=== PATIENT | female | born 1980 | race Hispanic/Latino ===

== ENCOUNTER 2020-05-18 07:00 | Observation (INO) | payer OTHER ==
[2020-01-11 11:54] LABS: BASOPHILS % (AUTO) 0.2 % (0.0-5.0); EOSINOPHILS % (AUTO) 1.6 % (0.0-8.0); HEMATOCRIT 38.7 % (36-48); LYMPHOCYTES % (AUTO) 20.7 % (21.0-51.0); MEAN CORPUSCULAR HGB CONC 31.8 g/dL (32.0-36.0); MONOCYTES % (AUTO) 9.8 % (3.0-13.0); NEUTROPHILS % (AUTO) 67.2 % (40.0-77.0); PLATELET COUNT (AUTO) 326 K/uL (130-400); RED CELL DISTRIBUTION WIDTH 15.2 % (11.0-15.5); WHITE BLOOD COUNT (AUTO) 5.7 K/uL (4.8-10.8)
[2020-01-11 12:04] LABS: CREATININE 0.5 mg/dL (0.5-1.5); POTASSIUM 4.3 mmol/L (3.5-5.1)
[2020-01-11 12:15] LABS: INR 0.87 (0.85-1.15); PARTIAL THROMBOPLASTIN TIME 27.7 SEC (26.3-35.5); PROTHROMBIN TIME 9.4 SEC (9.6-11.6)
[2020-01-12 08:47] VITALS: BP 123/67
[2020-05-16 11:40] LABS: BASOPHILS % (AUTO) 0.3 % (0.0-5.0); EOSINOPHILS % (AUTO) 1.6 % (0.0-8.0); HEMATOCRIT 39.3 % (36-48); LYMPHOCYTES % (AUTO) 22.3 % (21.0-51.0); MEAN CORPUSCULAR HEMOGLOBIN 28.7 pg (27.0-33.0); MEAN CORPUSCULAR HGB CONC 32.3 g/dL (32.0-36.0); MEAN CORPUSCULAR VOLUME 88.9 fL (79-99); MONOCYTES % (AUTO) 6.5 % (3.0-13.0); NEUTROPHILS % (AUTO) 68.7 % (40.0-77.0); PLATELET COUNT (AUTO) 368 K/uL (130-400); RED BLOOD CELL COUNT(AUTO) 4.42 MIL/uL (4.00-5.50); RED CELL DISTRIBUTION WIDTH 12.9 % (11.0-15.5); WHITE BLOOD COUNT (AUTO) 9.3 K/uL (4.8-10.8)
[2020-05-16 11:47] LABS: INR 0.86 (0.85-1.15); PARTIAL THROMBOPLASTIN TIME 26.9 SEC (26.3-35.5); PROTHROMBIN TIME 9.3 SEC (9.6-11.6)
[2020-05-16 11:58] LABS: CREATININE 0.4 mg/dL (0.5-1.5); POTASSIUM 4.1 mmol/L (3.5-5.1)
[2020-05-17 14:05] VITALS: BP 134/74
[2020-05-18] VITALS (10 sets, daily range): BP systolic 118–149; BP diastolic 75–84
[~2020-05-18] VITALS: Ht 138.4 cm; Wt 70.9 kg
[~2020-05-18 07:00] MED LIST: INSU100V37 SQ; IVAB5TAB PO; LIRA0.6P SQ; LISI-617 PO; LORA10TA7 PO; METF-526 PO; OMEP20CA12 PO; PNV11TAB5 PO; SERT100T12 PO; SODIUM CHLORIDE 0.9% 1000ML 1,000 ML IV SCH
[2020-05-18] MEDS ORDERED: SODIUM CHLORIDE 0.9% 1000ML 1,000 ML IV ONE (08:09)
[2020-05-18] MEDS ORDERED: HEPARIN SODIUM 1000UNIT/ML 10ML VIAL ONE (09:07)
[2020-05-18] MEDS ORDERED: MIDAZOLAM HCL 1 MG/ML 2ML VIAL ONE ×3 (09:07→12:07)
[2020-05-18] MEDS ORDERED: MEPERIDINE-PF 25 MG/ML SYG ONE ×3 (09:07→12:07)
[2020-05-18] MEDS ORDERED: LIDOCAINE HCL 2% 20ML ONE (09:08)
[2020-05-18] MEDS ORDERED: ISOPROTERENOL HCL 0.2 MG/ML AMP/VIAL/BAG ONE (10:33)
[2020-05-18] MEDS ORDERED: ADENOSINE 90MG/30ML VIAL IV ONE (10:36)
[2020-05-18] MEDS ORDERED: VERAPAMIL HCL 2.5 MG/ML VIAL ONE (12:33)
[2020-05-18] MEDS ORDERED: ACETAMINOPHEN-CODEINE 300/30MG TAB PO PRN (13:45)
[2020-05-18] MEDS ORDERED: LISINOPRIL 5 MG TABLET PO SCH (21:00)
[2020-05-18] MEDS ORDERED: PANTOPRAZOLE SODIUM 40 MG TABLET.DR PO SCH (21:00)
[2020-05-18] MEDS ORDERED: METFORMIN HCL 500 MG TAB.SR.24H PO SCH (21:00)
[2020-05-18] MEDS ORDERED: SERTRALINE HCL 50 MG TABLET PO SCH (21:00)
[2020-05-18] MEDS ORDERED: LORATADINE 10 MG TABLET PO SCH (21:00)
[2020-05-18] MEDS ORDERED: LIRAGLUTIDE 1.8 MG SQ SCH (21:00)
[2020-05-19] VITALS: BP 126/83
[2020-05-19 04:00] VITALS: BP 109/72
[2020-05-19 06:10] LABS: BASOPHILS % (AUTO) 0.3 % (0.0-5.0); EOSINOPHILS % (AUTO) 1.3 % (0.0-8.0); HEMATOCRIT 34.7 % (36-48); LYMPHOCYTES % (AUTO) 17.3 % (21.0-51.0); MEAN CORPUSCULAR HEMOGLOBIN 28.6 pg (27.0-33.0); MEAN CORPUSCULAR HGB CONC 32.3 g/dL (32.0-36.0); MEAN CORPUSCULAR VOLUME 88.5 fL (79-99); MONOCYTES % (AUTO) 7.4 % (3.0-13.0); NEUTROPHILS % (AUTO) 72.9 % (40.0-77.0); PLATELET COUNT (AUTO) 256 K/uL (130-400); RED BLOOD CELL COUNT(AUTO) 3.92 MIL/uL (4.00-5.50); WHITE BLOOD COUNT (AUTO) 7.9 K/uL (4.8-10.8)
[2020-05-19 06:21] LABS: CREATININE 0.4 mg/dL (0.5-1.5); POTASSIUM 3.8 mmol/L (3.5-5.1)
[2020-05-19 08:00] VITALS: BP 109/71
[2020-05-19] MEDS ORDERED: INSULIN DEGLUDEC 50 UNIT SQ SCH (11:30)
[2020-05-19 12:00] VITALS: BP 115/69
--- NOTE | 2020-05-19 12:39 | NUR ---
DISCHARGE PATIENT IS ALL SET FOR DISCHARGE. WAITING ON DR LEVY TO PUT IN DISCHARGE ORDERS. PATIENT DID NOT BRING HOME INSULIN TO HOSPITAL AND REFUSES TO SUBSTITUTE SAYING SHE WILL RESUME HERS ONCE SHE GETS DISCHARGED.
[2020-05-19 16:00] VITALS: BP 116/65
--- NOTE | 2020-05-19 17:38 | NUR ---
DISCHARGE PATIENT HAS BEEN DISCHARGED TO HOME. WALKED PATIENT DOWNSTAIRS. PATIENT IS BEEN TAKEN HOME BY MOM. ALL DISCHARGE INSTRUCTIONS PRINTED OUT AND HANDED TO PATIENT.
== END 2020-05-19 17:38 | disposition home or self-care (01) ==
LOC: DAH 07:00 → INTOOBSV 07:01 → OBSVTOIN 07:01 → DAH 07:01 → DAHIP 07:01 → 4CH 14:58
PROVIDERS: ADMIT Internal Medicine; ATTEND Internal Medicine
DX: I47.1 Supraventricular tachycardia (principal); E11.9 Type 2 diabetes mellitus without complications; I10 Essential (primary) hypertension; E78.5 Hyperlipidemia, unspecified; E66.01 Morbid (severe) obesity due to excess calories; K21.9 Gastro-esophageal reflux disease without esophagitis; Z79.4 Long term (current) use of insulin; Z79.899 Other long term (current) drug therapy; Z68.37 Body mass index [BMI] 37.0-37.9, adult
CPT/HCPCS: 36415 ×3; 80048 ×3; 82948 ×5; 84703 ×2; 85025 ×3; 85610 ×2; 85730 ×2; 93005; 93613; 93621; 93623; 93653; 93655; 96360; 96361; A4215; A4216; A4221; A4222; A4223 ×3; A4606; A4649 ×2; A4663; C1730 ×5; C1731; C1732; C1894 ×5; G0378 ×18; J0153; J1644 ×3; J2175 ×3; J2250 ×3; J3490 ×3; J7030; 99156; 99157

== ENCOUNTER 2024-08-25 05:49 | Day surgery (SDC) | payer BC ==
[2024-08-23 10:05] VITALS: BP 125/63; PULSE 97; RESP 18; TEMP 97.2
--- NOTE | 2024-08-23 10:05 | EKG ---
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
[2024-08-23 10:08] LABS: BASOPHILS # (AUTO) 0.02 K/uL (0.00-0.20); BASOPHILS % (AUTO) 0.2 % (0.0-5.0); EOSINOPHILS # (AUTO) 0.07 K/uL (0.00-0.70); EOSINOPHILS % (AUTO) 0.8 % (0.0-8.0); HEMATOCRIT 41.5 % (36-48); IMMATURE GRANULOCYTE ABSOLUTE 0.06 K/uL (0-1); LYMPHOCYTES % (AUTO) 23.7 % (21.0-51.0); MEAN CORPUSCULAR HEMOGLOBIN 30.6 pg (27.0-33.0); MEAN CORPUSCULAR HGB CONC 33.3 g/dL (32.0-36.0); MONOCYTES # (AUTO) 0.7 K/uL (0.1-1.0); MONOCYTES % (AUTO) 7.8 % (3.0-13.0); NEUTROPHILS # (AUTO) 5.8 K/uL (1.8-7.7); NEUTROPHILS % (AUTO) 66.8 % (40.0-77.0); PLATELET COUNT (AUTO) 394 K/uL (130-400); RED BLOOD CELL COUNT(AUTO) 4.51 MIL/uL (4.00-5.50); RED CELL DISTRIBUTION WIDTH 13.2 % (11.0-15.5); WHITE BLOOD COUNT (AUTO) 8.6 K/uL (4.8-10.8)
[2024-08-23 10:23] LABS: CREATININE 0.6 mg/dL (0.5-1.0); POTASSIUM 4.2 mmol/L (3.5-5.1)
[2024-08-23 10:25] LABS: INR <= 0.93 (0.85-1.15); PROTHROMBIN TIME 9.8 SEC (9.6-11.6)
[2024-08-23 10:26] LABS: PARTIAL THROMBOPLASTIN TIME 27.3 SEC (26.3-35.5)
--- NOTE | 2024-08-23 10:26 | NUR ---
RE: SALLY REPORTED TO DR HOLGUIN THAT PATIENT'S LAST DOSE OF OZEMPIC WAS ON 08/21/24, NO NEW ORDERS RECEIVED. OK TO PROCEED, FOLLOW PROTOCOL.
[2024-08-25] VITALS (19 sets, daily range): BP systolic 108–129; BP diastolic 57–79; PULSE 91–116; RESP 16–21; TEMP 97.2–97.8
[~2024-08-25] VITALS: Ht 137.2 cm; Wt 71.6 kg
[~2024-08-25 05:49] MED LIST changes: +ATOR40TA71 PO; +DULO60CA64 PO; +FENO48TA10 PO; +INS7030 SQ; -INSU100V37 SQ; -IVAB5TAB PO; -LIRA0.6P SQ; -LISI-617 PO; +METF-446 PO; -METF-526 PO; +OMEG-11 PO; -PNV11TAB5 PO; +SEMA2PEN SQ; -SERT100T12 PO; -SODIUM CHLORIDE 0.9% 1000ML 1,000 ML IV SCH
[2024-08-25] MEDS: 0.9%NACL 1000ML 1,000 ML IV ONE (06:48)
[2024-08-25] MEDS ORDERED: LIDOCAINE PF 100MG/5ML (2%) SYRINGE 5ML ONE (07:08)
[2024-08-25] MEDS ORDERED: NEOSTIGMINE METHYLSULFATE 1MG/ML IV ONE (07:10)
[2024-08-25] MEDS ORDERED: phenylEPHRINE HCL 10 MG/ML 1ML VIAL IV ONE (07:10)
[2024-08-25] MEDS ORDERED: SUCCINYLCHOLINE CHLORIDE 20 MG/ML 10 ML VIAL ONE (07:10)
[2024-08-25] MEDS ORDERED: proPOFol 10 MG/ML 20ML VIAL IV ONE (07:10)
[2024-08-25] MEDS ORDERED: MIDAZOLAM HCL 1 MG/ML 2ML VIAL ONE (07:11)
[2024-08-25] MEDS ORDERED: rocuRONium bROMide 10MG/1ML 5ML VL ONE ×2 (07:11→07:12)
[2024-08-25] MEDS ORDERED: GLYCOPYRROLATE 0.2 MG/ML 5 ML VIAL ONE (07:11)
[2024-08-25] MEDS ORDERED: FENTanyl CITRate PF 50 MCG/1 ML 5ML AMP IV ONE (07:12)
[2024-08-25] MEDS ORDERED: dexmedeTOMIDine HCL 200 MCG/2 ML VIAL IV ONE (07:14)
[2024-08-25] MEDS ORDERED: HEParin 10,000 UNIT/10ML (1,000 UNIT/ML) VIAL ONE (07:17)
[2024-08-25] MEDS ORDERED: LIDOCAINE HCL 400MG/20ML VIAL ONE (07:17)
[2024-08-25] MEDS ORDERED: HEParin-NS 1,000 UNIT/500 ML 1,000 ML IV ONE (07:18)
[2024-08-25] MEDS ORDERED: HEParin-NS 1,000 UNIT/500 ML 500 ML IV ONE ×2 (07:24→07:47)
[2024-08-25] MEDS ORDERED: ketaMINE 50MG/ML SYRINGE 50 MG/ML DISP.SYRIN ONE (07:33)
[2024-08-25] MEDS ORDERED: ISOPROTERENOL HCL 0.2 MG/ML AMP/VIAL/BAG ONE (08:09)
[2024-08-25] MEDS ORDERED: dexaMETHasone SOD PHOSPHATE 10MG/ML 1ML VIAL ONE (08:57)
[2024-08-25] MEDS ORDERED: ondanSETRON 4MG INJ ONE (08:57)
[2024-08-25] MEDS ORDERED: metoPROLOL tartRATE 1 MG/ML 5ML VIAL IV ONE (09:27)
[2024-08-25] MEDS: morPHINE 2 MG SYG ONE (10:31)
[2024-08-25] MEDS: acetaMINOPHEN 100 ML ONE (11:17)
[2024-08-25] MEDS: ketOROlac 15MG/ML VIAL (15MG/ML) IV ONE (11:57)
--- NOTE | 2024-08-25 13:34 | EKG ---
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
== END 2024-08-25 12:45 | disposition home or self-care (01) ==
LOC: DAH 05:49
PROVIDERS: ATTEND Internal Medicine Cardiovascular Disease
DX: I47.19 Other supraventricular tachycardia (principal); E11.9 Type 2 diabetes mellitus without complications; I49.9 Cardiac arrhythmia, unspecified; K21.9 Gastro-esophageal reflux disease without esophagitis; K76.0 Fatty (change of) liver, not elsewhere classified; E66.01 Morbid (severe) obesity due to excess calories; M79.7 Fibromyalgia; M75.00 Adhesive capsulitis of unspecified shoulder; Z79.899 Other long term (current) drug therapy; Z68.38 Body mass index [BMI] 38.0-38.9, adult; Z83.3 Family history of diabetes mellitus; Z82.49 Family history of ischemic heart disease and other diseases of the circulatory system; Z98.890 Other specified postprocedural states; Z79.84 Long term (current) use of oral hypoglycemic drugs
CPT/HCPCS: 80048; 84703; 85025; 85610; 85730; 36415; 93005 ×2; 93653; 82948 ×3; J1885; C1894 ×3; C1732 ×3; A4649 ×2; C1760 ×2; J3010; J3490 ×5; J1100; J0330; J2270; J7030; J2003; J1644 ×4; J2250; J2704; J2405; J2710; J2371; A4215; A4222; A4221; A4663; A4216; A4606; A4223 ×3